=== PATIENT | female | born 1950 | race Caucasian/White ===

== ENCOUNTER 2017-01-18 16:18 | Emergency (ER) | payer BC | END 2017-01-18 20:01 | disposition home or self-care (01) | LOC: ER 16:18 | DX: K57.32 Diverticulitis of large intestine without perforation or abscess without bleeding (principal); Z98.51 Tubal ligation status; Z88.8 Allergy status to other drugs, medicaments and biological substances | CPT/HCPCS: 36415; 96361; 96374; 96375 ==

== ENCOUNTER → 2017-02-23 | Day surgery (SDC) | payer BC ==
[~2017-02-23] VITALS: Ht 167.6 cm; Wt 93.9 kg
== END | disposition home or self-care (01) ==
LOC: SDCH 07:26
DX: K57.30 Diverticulosis of large intestine without perforation or abscess without bleeding (principal); M19.90 Unspecified osteoarthritis, unspecified site; Z88.1 Allergy status to other antibiotic agents; Z88.8 Allergy status to other drugs, medicaments and biological substances; Z79.899 Other long term (current) drug therapy; Z98.51 Tubal ligation status
CPT/HCPCS: J2704